=== PATIENT | male | born 1960 | race Caucasian/White ===

== ENCOUNTER 2023-06-13 17:08 | Inpatient (IN) | payer BC ==
[~2023-06-13] VITALS: Ht 172.7 cm; Wt 79.4 kg
[2023-06-13 17:12] VITALS: BP 178/98; PULSE 101; RESP 20; TEMP 97.7; O2SAT 99
[2023-06-13] MEDS ORDERED: ONDANSETRON 4 MG/2 ML VIAL IVP ONE (17:55)
[2023-06-13] MEDS ORDERED: NACL 0.9% 1,000 ML IV ONE (17:55)
[2023-06-13] MEDS ORDERED: KETOROLAC 30 MG/ML VIAL IVP ONE (18:30)
[2023-06-13 18:36] LABS: BASOPHILS # (AUTO) 0.1 K/uL (0.00-0.22); BASOPHILS % (AUTO) 0.4 % (0.0-2.0); HEMATOCRIT 47.2 % (36-52); HEMOGLOBIN 15.9 g/dL (12.0-18.0); LYMPHOCYTES # (AUTO) 1.5 K/uL (2.0-11.5); LYMPHOCYTES % (AUTO) 10.5 % (20.5-51.1); MEAN CORPUSCULAR HEMOGLOBIN 32 pg (27-31); MEAN CORPUSCULAR HGB CONC 34 g/dL (33-37); MEAN CORPUSCULAR VOLUME 93.8 fL (80-94); MONOCYTES # (AUTO) 0.5 K/uL (0.8-1.0); MONOCYTES % (AUTO) 3.2 % (1.7-9.3); NEUTROPHILS % (AUTO) 85.9 % (42.2-75.2); PLATELET COUNT (AUTO) 325 K/uL (140-450); RED BLOOD CELL COUNT(AUTO) 5.04 MIL/uL (4.20-6.10); RED CELL DISTRIBUTION WIDTH 13.7 % (11.6-13.7); WHITE BLOOD COUNT (AUTO) 13.9 K/uL (4.8-10.8)
[2023-06-13 18:45] LABS: ANION GAP 33.6 (8-16); CALCIUM 8.9 mg/dL (8.5-10.1); CREATININE 1.7 mg/dL (0.6-1.3); POTASSIUM 4.4 mmol/L (3.5-5.1)
[2023-06-13 18:47] LABS: APPEARANCE,URINE CLEAR (CLEAR); BILIRUBIN,URINE 1+ (NEGATIVE); BLOOD, URINE 1+ (NEGATIVE); COLOR,URINE YELLOW (YELLOW); LEUKOCYTE ESTERASE ,URINE NEGATIVE (NEGATIVE); NITRITE, URINE NEGATIVE (NEGATIVE); PROTEIN,URINE 2+ (NEGATIVE); UGLUCOSE 3+ (NEGATIVE); UROBILINOGEN,URINE 0.2 EU/dL (0.2 - 1)
[2023-06-13 18:54] LABS: CARBON DIOXIDE 7.8 mmol/L (21-32)
[2023-06-13 18:55] LABS: LACTIC ACID 1.8 mmol/L (0.4-2.0)
[2023-06-13 19:03] LABS: ALBUMIN 4.1 g/dL (3.4-5.0); BILIRUBIN,DIRECT 0.1 mg/dL (0.0-0.3)
[2023-06-13 19:12] LABS: ACETONE, SERUM Negative (NEGATIVE)
[2023-06-13 19:16] LABS: ICTOTEST NEGATIVE (NEGATIVE)
[2023-06-13 19:17] LABS: BACTERIA,URINE 0-2 /HPF (None Seen); MUCUS,URINE None Seen /LPF (None Seen); SQUAMOUS EPITHELIAL CELL,UR 0-3 (FEW) /LPF (0-3 (FEW)); WBC,URINE 0-5 /HPF (0-5)
[2023-06-13 19:19] LABS: PARTIAL THROMBOPLASTIN TIME 22.5 secs (22-35.6)
[2023-06-13] MEDS ORDERED: NACL 0.9% 2,000 ML IV ONE (19:20)
[2023-06-13] MEDS ORDERED: INSULIN REGULAR, HUMAN 100 UNIT in NACL 0.9% 100 ML IV SCH ×2 (19:20)
[2023-06-13] MEDS ORDERED: DEXTROSE 50% 50 ML SYR IVP PRN ×2 (19:20→20:40)
[2023-06-13] MEDS ORDERED: POTASSIUM CHLORIDE 20% 40 MEQ/15 ML UDC PO ONE (19:20)
[2023-06-13 19:22] LABS: ALKALINE PHOSPHATASE 82 U/L (50-136); CREATINE KINASE, TOTAL 110 U/L (39-308); TOTAL BILIRUBIN 0.5 mg/dL (0.0-1.0); TOTAL PROTEIN, SERUM 9.4 g/dL (6.4-8.2)
[2023-06-13 19:23] LABS: INR 0.92 (0.8-1.2); PROTHROMBIN TIME 9.7 secs (10.8-13.4)
[2023-06-13 19:24] LABS: ALANINE AMINOTRANSFERASE 25 U/L (12-78); ASPARTATE AMINOTRANSFERASE 15 U/L (15-37)
[2023-06-13 20:11] LABS: FLU A ANTIGEN negative (NEGATIVE); FLU B ANTIGEN NEGATIVE (NEGATIVE)
[2023-06-13] MEDS: DEXT 5% / NACL 0.45% 1,000 ML IV SCH ×3 (20:15→23:40)
[2023-06-13] MEDS ORDERED: MORPHINE SULFATE 4 MG/ML SYR ONE (20:29)
[2023-06-13] MEDS ORDERED: MORPHINE SULFATE 4 MG/ML SYR IVP ONE (20:30)
[2023-06-13] MEDS: BLOOD GLUCOSE MONITORING 1 DEV DEV FS SCH ×9 (20:33→23:44)
[2023-06-13] MEDS ORDERED: ZOLPIDEM 5 MG TAB PO PRN (20:40)
[2023-06-13] MEDS ORDERED: POTASSIUM CHLORIDE 20% 40 MEQ/15 ML UDC ONE (20:52)
[2023-06-13] MEDS ORDERED: ONDANSETRON 4 MG/2 ML VIAL ONE (21:15)
[2023-06-13] MEDS: NACL 0.9% 1,000 ML IV SCH (22:38)
[2023-06-13] MEDS: INSULIN REGULAR, HUMAN 100 UNIT in NACL 0.9% 100 ML IV SCH ×4 (23:09→23:56)
[2023-06-14] MEDS: BLOOD GLUCOSE MONITORING 1 DEV DEV FS SCH ×38 (00:20→23:50)
[2023-06-14] MEDS: DEXT 5% / NACL 0.45% 1,000 ML IV SCH ×6 (00:20→22:16)
[2023-06-14 01:08] LABS: ANION GAP 29.1 (8-16); CALCIUM 8.6 mg/dL (8.5-10.1); CREATININE 1.3 mg/dL (0.6-1.3); POTASSIUM 5.7 mmol/L (3.5-5.1)
[2023-06-14 01:10] LABS: CARBON DIOXIDE 6.6 mmol/L (21-32)
[2023-06-14] MEDS: NACL 0.9% 1,000 ML IV SCH ×5 (01:40→21:40)
[2023-06-14 04:14] LABS: EOSINOPHILS % (AUTO) 0.2 % (0.0-4.0); HEMATOCRIT 43.6 % (36-52); HEMOGLOBIN 14.6 g/dL (12.0-18.0); LYMPHOCYTES # (AUTO) 0.6 K/uL (2.0-11.5); MEAN CORPUSCULAR HEMOGLOBIN 31 pg (27-31); MEAN CORPUSCULAR HGB CONC 33 g/dL (33-37); MEAN CORPUSCULAR VOLUME 93.7 fL (80-94); MONOCYTES # (AUTO) 1.4 K/uL (0.8-1.0); MONOCYTES % (AUTO) 7.2 % (1.7-9.3); NEUTROPHILS # (AUTO) 18.1 K/uL (1.8-7.7); NEUTROPHILS % (AUTO) 89.6 % (42.2-75.2); PLATELET COUNT (AUTO) 173 K/uL (140-450); RED BLOOD CELL COUNT(AUTO) 4.65 MIL/uL (4.20-6.10); RED CELL DISTRIBUTION WIDTH 14.2 % (11.6-13.7); WHITE BLOOD COUNT (AUTO) 20.1 K/uL (4.8-10.8)
[2023-06-14 04:38] LABS: CALCIUM 8.3 mg/dL (8.5-10.1); CARBON DIOXIDE 9.2 mmol/L (21-32); CREATININE 1.1 mg/dL (0.6-1.3); POTASSIUM 5.2 mmol/L (3.5-5.1)
[2023-06-14 06:03] LABS: BLOOD GAS BASE EXCESS -17.1 mmol/L (-2.0-2.0); BLOOD GAS HCO3 8.5 mmol/L (22-26); BLOOD GAS O2 SAT% 98.4 % (92.0-98.5); BLOOD GAS PCO2 21.1 mmHg (35-45); BLOOD GAS PO2 111.4 mmHg (75-100)
[2023-06-14] MEDS ORDERED: ONDANSETRON 4 MG/2 ML VIAL IVP PRN (06:55)
[2023-06-14 09:08] LABS: ANION GAP 15.7 (8-16); CALCIUM 8.4 mg/dL (8.5-10.1); CARBON DIOXIDE 15.3 mmol/L (21-32); CREATININE 1.4 mg/dL (0.6-1.3)
[2023-06-14 12:15] LABS: ANION GAP 14.5 (8-16); CALCIUM 8.3 mg/dL (8.5-10.1); CARBON DIOXIDE 17.1 mmol/L (21-32); CREATININE 1.2 mg/dL (0.6-1.3); POTASSIUM 3.6 mmol/L (3.5-5.1)
[2023-06-14 13:34] LABS: URINE TOTAL PROTEIN 87.6 mg/dL (0-12); URINE TPRO CREAT RATIO 2.4 (0-0.20)
[2023-06-14 18:09] LABS: ANION GAP 13.7 (8-16); CALCIUM 8.4 mg/dL (8.5-10.1); CARBON DIOXIDE 15.7 mmol/L (21-32); CREATININE 1.2 mg/dL (0.6-1.3); POTASSIUM 3.4 mmol/L (3.5-5.1)
[2023-06-14 20:47] LABS: ANION GAP 11.1 (8-16); CARBON DIOXIDE 19.5 mmol/L (21-32); CREATININE 1.2 mg/dL (0.6-1.3)
[2023-06-14 20:54] LABS: POTASSIUM 2.6 mmol/L (3.5-5.1)
[2023-06-14] MEDS ORDERED: KCL 20 MEQ IN 100 mL PREMIX 200 ML IV ONE (21:45)
[2023-06-14] MEDS ORDERED: EMPA10TA PO (23:36)
[2023-06-15] MEDS: BLOOD GLUCOSE MONITORING 1 DEV DEV FS SCH ×9 (00:02→20:18)
[2023-06-15] MEDS: NACL 0.9% 1,000 ML IV SCH ×2 (02:40→09:10)
[2023-06-15 02:50] LABS: ANION GAP 10.8 (8-16); CALCIUM 8.1 mg/dL (8.5-10.1); CARBON DIOXIDE 18.8 mmol/L (21-32); CREATININE 1.1 mg/dL (0.6-1.3)
[2023-06-15] MEDS: DEXT 5% / NACL 0.45% 1,000 ML IV SCH ×2 (02:57→08:02)
[2023-06-15 03:13] LABS: POTASSIUM 2.6 mmol/L (3.5-5.1)
[2023-06-15] MEDS ORDERED: POTASSIUM CHLORIDE 10 MEQ TABER PO ONE (03:35)
[2023-06-15] MEDS ORDERED: INSULIN LANTUS 100 UNITS/ML 10 ML VIAL SUBQ ONE (03:35)
[2023-06-15] MEDS: INSULIN LISPRO SLIDING SCALE 100 UNITS/ML VIAL SUBQ PRN ×3 (07:48→20:25)
[2023-06-15] MEDS ORDERED: NACL 0.9% 1,000 ML IV SCH (08:25)
[2023-06-15 08:32] LABS: ANION GAP 12.2 (8-16); CALCIUM 7.6 mg/dL (8.5-10.1); CARBON DIOXIDE 18.3 mmol/L (21-32); POTASSIUM 3.5 mmol/L (3.5-5.1)
[2023-06-15 08:56] LABS: ANION GAP 12.3 (8-16); CALCIUM 7.8 mg/dL (8.5-10.1); CREATININE 1.1 mg/dL (0.6-1.3); POTASSIUM 3.3 mmol/L (3.5-5.1)
[2023-06-15 12:27] LABS: ANION GAP 10.6 (8-16); CALCIUM 8.1 mg/dL (8.5-10.1); CARBON DIOXIDE 20.7 mmol/L (21-32); POTASSIUM 3.3 mmol/L (3.5-5.1)
[2023-06-15] MEDS ORDERED: POTASSIUM CHLORIDE 10 MEQ TABER PO SCH ×3 (13:27→18:05)
[2023-06-15 14:57] VITALS: PULSE 74; RESP 17; O2SAT 99
[2023-06-15 15:38] VITALS: BP 132/79; PULSE 71; RESP 19; TEMP 97.7; O2SAT 99
[2023-06-15 16:05] VITALS: PULSE 63
[2023-06-15 17:11] LABS: ANION GAP 9.9 (8-16); CALCIUM 8.1 mg/dL (8.5-10.1); CARBON DIOXIDE 21.4 mmol/L (21-32); CREATININE 0.9 mg/dL (0.6-1.3); POTASSIUM 3.3 mmol/L (3.5-5.1)
[2023-06-15 19:53] VITALS: PULSE 69
[2023-06-15 20:00] VITALS: BP 141/81; PULSE 62; PULSE 65; RESP 18; TEMP 98.3; O2SAT 97; O2SAT 98
[2023-06-15 21:33] LABS: ANION GAP 9.9 (8-16); CALCIUM 7.8 mg/dL (8.5-10.1); CARBON DIOXIDE 22.7 mmol/L (21-32); CREATININE 0.9 mg/dL (0.6-1.3); POTASSIUM 3.6 mmol/L (3.5-5.1)
[2023-06-15 23:55] VITALS: PULSE 61
[2023-06-16] VITALS: BP 136/60; PULSE 64; RESP 18; TEMP 98; O2SAT 98
[2023-06-16] MEDS: BLOOD GLUCOSE MONITORING 1 DEV DEV FS SCH ×5 (00:24→16:00)
[2023-06-16] MEDS: NACL 0.9% 1,000 ML IV SCH ×3 (00:26→15:10)
[2023-06-16] MEDS: INSULIN LISPRO SLIDING SCALE 100 UNITS/ML VIAL SUBQ PRN ×3 (00:30→09:09)
[2023-06-16 03:57] VITALS: PULSE 65
[2023-06-16 04:00] VITALS: BP 140/65; PULSE 68; RESP 18; TEMP 97.7; O2SAT 99
[2023-06-16 08:00] VITALS: BP 137/76; PULSE 61; PULSE 94; RESP 18; TEMP 96.6; O2SAT 98
[2023-06-16 09:53] LABS: BASOPHILS % (AUTO) 0.4 % (0.0-2.0); EOSINOPHILS # (AUTO) 0.1 K/uL (0-0.4); EOSINOPHILS % (AUTO) 2.7 % (0.0-4.0); HEMATOCRIT 33.1 % (36-52); LYMPHOCYTES # (AUTO) 1.4 K/uL (2.0-11.5); LYMPHOCYTES % (AUTO) 33.3 % (20.5-51.1); MEAN CORPUSCULAR HEMOGLOBIN 32 pg (27-31); MEAN CORPUSCULAR HGB CONC 36 g/dL (33-37); MEAN CORPUSCULAR VOLUME 87.2 fL (80-94); MONOCYTES # (AUTO) 0.4 K/uL (0.8-1.0); MONOCYTES % (AUTO) 9.6 % (1.7-9.3); NEUTROPHILS # (AUTO) 2.3 K/uL (1.8-7.7); PLATELET COUNT (AUTO) 180 K/uL (140-450); RED CELL DISTRIBUTION WIDTH 13.6 % (11.6-13.7); WHITE BLOOD COUNT (AUTO) 4.2 K/uL (4.8-10.8)
[2023-06-16 10:44] LABS: ANION GAP 9.3 (8-16); CALCIUM 7.7 mg/dL (8.5-10.1); CARBON DIOXIDE 24.9 mmol/L (21-32); CREATININE 0.8 mg/dL (0.6-1.3); POTASSIUM 3.2 mmol/L (3.5-5.1)
[2023-06-16] MEDS ORDERED: POTASSIUM CHLORIDE 40 MEQ, LIDOCAINE 1% 25 MG in NACL 0.9% 250 ML IV SCH (12:00)
[2023-06-16 16:00] VITALS: BP 141/70; PULSE 60; RESP 18; TEMP 96.8; O2SAT 98
[2023-06-16 17:03] VITALS: BP 137/76; PULSE 61; RESP 18; TEMP 96.6
== END 2023-06-16 17:30 | disposition home or self-care (01) | DRG 638 ==
LOC: MED 17:08 → MMU 20:52 → MTU 06-15 13:37
PROVIDERS: ADMIT Student in an Organized Health Care Education/Training Program; ATTEND Student in an Organized Health Care Education/Training Program
DX: E11.10 Type 2 diabetes mellitus with ketoacidosis without coma (principal); N17.9 Acute kidney failure, unspecified; Z68.26 Body mass index [BMI] 26.0-26.9, adult; Z20.822 Contact with and (suspected) exposure to COVID-19; N18.9 Chronic kidney disease, unspecified; E87.6 Hypokalemia; D72.829 Elevated white blood cell count, unspecified; Z88.0 Allergy status to penicillin
CPT/HCPCS: 36415; 36600; 71045; 80048; 80076; 81001; 82009; 82550; 82553; 82570; 82803; 82948; 83036; 83605; 83880; 84484; 85025; 85610; 85730; 87040; 87081; 87086; 96361; 96374; 96375; 99285; J1815; J1885; J2001; J2270; J2405; J3480; J7030